=== PATIENT | female | born 1960 | race Two or more races ===

== ENCOUNTER 2019-04-26 21:03 | Emergency (ER) | payer OTHER ==
[~2019-04-26] VITALS: Ht 185.4 cm; Wt 72.6 kg
[2019-04-26 21:45] LABS: BASOPHILS ABSOLUTE AUTO 0.04 K/mm3 (0.00-0.23); BASOPHILS PERCENT AUTO 1 % (0-2); EOSINOPHILS ABSOLUTE AUTO 0.28 K/mm3 (0.00-0.68); EOSINOPHILS PERCENT AUTO 5 % (0-6); Hematocrit 42.6 % (33.0-51.0); Hemoglobin 13.8 g/dL (11.5-16.0); IMMATURE GRAN ABSOLUTE AUTO 0.01 K/mm3 (0.00-0.10); IMMATURE GRAN PERCENT AUTO 0 % (0-1); LYMPHOCYTES ABSOLUTE AUTO 1.72 K/mm3 (0.84-5.20); LYMPHOCYTES PERCENT AUTO 33 % (21-46); MONOCYTES ABSOLUTE AUTO 0.58 K/mm3 (0.16-1.47); MONOCYTES PERCENT AUTO 11 % (4-13); Mean Corpuscular HGB Conc 32.4 g/dL (31.5-36.5); Mean Corpuscular Volume 93 fL (80-100); Mean Platelet Volume 11.4 fL (9.1-12.4); NEUTROPHILS ABSOLUTE AUTO 2.63 K/mm3 (1.96-9.15); NEUTROPHILS PERCENT AUTO 50 % (41-73); Platelet Count 202 K/mm3 (150-400); RDW Coefficient Variation 12.9 % (11.7-14.2); RDW Standard Deviation 43.6 fL (35.1-46.3); White Blood Cell Count 5.26 K/mm3 (4.00-11.30)
[2019-04-26 22:05] LABS: Alanine Aminotransfer (ALT/SGP 27 U/L (12-78); Albumin/Globulin Ratio 1.1 (0.8-1.8); Alk Phos 59 U/L (50-136); Anion Gap 9 mmol/L (6-16); Aspartate Aminotrans (AST/SGOT 20 U/L (12-37); Bilirubin, Total 0.2 mg/dL (0.1-1.0); Blood Urea Nitrogen 20 mg/dL (8-24); Bun/Creatinine Ratio 23.4 (12.0-20.0); CO2, Blood 25 mmol/L (21-32); Chloride, Blood 110 mmol/L (98-108); Creatinine, Blood 0.86 mg/dL (0.40-1.00); Globulin, Blood 3.8 g/dL (2.2-4.0); Glomerular Filtration Rate >60 (60-); Glucose, Blood 99 mg/dL (70-99); Potassium, Blood 4.1 mmol/L (3.5-5.5); Sodium, Blood 144 mmol/L (136-145); Total Protein, Blood 7.8 g/dL (6.4-8.2); Troponin I <0.015 ng/mL (0.000-0.040)
== END 2019-04-26 23:30 | disposition home or self-care (01) ==
LOC: ER 21:03
PROVIDERS: Emergency Medicine
DX: M54.12 Radiculopathy, cervical region (principal)
CPT/HCPCS: 36415; 71046; 80053; 83880; 84484; 85025; 93005; 93010; 96374; 99284-25; A9270; J1885

== ENCOUNTER → 2019-12-11 | Outpatient (CLI) | payer OTHER | END | disposition home or self-care (01) | LOC: PLD 11:01 → LAB SHORT 11:01 | DX: D04.39 Carcinoma in situ of skin of other parts of face (principal) | CPT/HCPCS: 88305 ==

== ENCOUNTER → 2020-02-17 | Outpatient (CLI) | payer OTHER | END | disposition home or self-care (01) | LOC: LAB 12:22 → LAB SHORT 12:22 | PROVIDERS: Hospitalist | DX: Z12.4 Encounter for screening for malignant neoplasm of cervix (principal) | CPT/HCPCS: 84443; G0145 ==

== ENCOUNTER 2020-09-15 10:01 | Day surgery (SDC) | payer OTHER | END 2020-09-15 23:50 | disposition home or self-care (01) | LOC: MOI MAM 10:01 | DX: D05.11 Intraductal carcinoma in situ of right breast (principal) | CPT/HCPCS: 19281; A4648 ==

== ENCOUNTER 2020-09-21 09:10 | Day surgery (SDC) | payer OTHER ==
[~2020-09-21] VITALS: Ht 172.7 cm; Wt 81.7 kg
--- NOTE | 2020-09-21 14:29 | NUR ---
Patient up to Ambulate independently. Gait steady. Discharge instructions reviewed with patient. Patient verbalizes understanding. Copy given to patient to take home. Patient States Post-Procedure ride home has been arranged. Discharged via wheelchair to private car for ride home. breast binder in places. pt belonings returned. Dressing to procedure site clean, dry, intact with no visible drainage, swelling, erythema or bruising noted.
== END 2020-09-22 22:48 | disposition home or self-care (01) ==
LOC: NM 09:10 → ORSCMMR 09:10 → NM 10:00 → ORSCMMR 09-22 22:48
PROVIDERS: Surgery
PROC: 07B50ZX Excision of Right Axillary Lymphatic, Open Approach, Diagnostic (ICD-10-PCS; principal; 2020-09-21 11:00)
PROC: 0HBT0ZZ Excision of Right Breast, Open Approach (ICD-10-PCS; principal; 2020-09-21 11:00)
DX: D05.11 Intraductal carcinoma in situ of right breast (principal); D36.0 Benign neoplasm of lymph nodes
CPT/HCPCS: 38792; 88307; 88342; A9520; J0171; J0690; J1100; J1885; J2250; J2405; J2704; J3010; J7120; Q9968

== ENCOUNTER 2020-09-29 06:01 | Day surgery (SDC) | payer OTHER ==
[~2020-09-29] VITALS: Ht 172.7 cm; Wt 82.1 kg
--- NOTE | 2020-09-29 09:26 | NUR ---
Patient up to Ambulate independently. Gait steady. Discharge instructions reviewed with patient. Patient verbalizes understanding. Copy given to patient to take home. Discharged via wheelchair to private car for ride home WITH SON. DRESSING AND BREAST BINDER REMAIN IN PLACE AND CDI
== END 2020-09-29 09:23 | disposition home or self-care (01) ==
LOC: ORSCMMR 06:01 → ORD 07:30 → ORSCMMR 09:23
PROVIDERS: Surgery
PROC: 0HBT0ZZ Excision of Right Breast, Open Approach (ICD-10-PCS; principal; 2020-09-29 07:30)
DX: D05.11 Intraductal carcinoma in situ of right breast (principal)
CPT/HCPCS: 88305; J0690; J1100; J1885; J2405; J2704; J3010; J7120

== ENCOUNTER → 2021-02-16 | Outpatient (CLI) | payer OTHER | END | disposition home or self-care (01) | LOC: LAB 14:55 → LAB SHORT 14:55 | DX: L57.0 Actinic keratosis (principal) | CPT/HCPCS: 88305 ==

== ENCOUNTER → 2021-08-17 | Outpatient (CLI) | payer OTHER | END | disposition home or self-care (01) | LOC: LAB SHORT 16:30 → LAB 16:30 | PROVIDERS: Hospitalist | DX: Z12.4 Encounter for screening for malignant neoplasm of cervix (principal) | CPT/HCPCS: G0145 ==

== ENCOUNTER → 2021-10-07 | Outpatient (CLI) | payer OTHER | END | disposition home or self-care (01) | LOC: LAB 12:45 → LAB SHORT 12:45 | DX: L08.9 Local infection of the skin and subcutaneous tissue, unspecified (principal) | CPT/HCPCS: 87070; 87205 ==

== ENCOUNTER 2022-01-26 11:46 | Day surgery (SDC) | payer OTHER ==
[~2022-01-26] VITALS: Ht 172.7 cm; Wt 76.0 kg
[2022-01-26] MEDS ORDERED: LETR2.5 (12:07)
[2022-01-26] MEDS ORDERED: OTEZLA1 EAC2 (12:09)
== END 2022-01-26 13:55 | disposition home or self-care (01) ==
LOC: ORSCSDS 11:46
PROVIDERS: Surgery
PROC: 0DBK8ZX Excision of Ascending Colon, Via Natural or Artificial Opening Endoscopic, Diagnostic (ICD-10-PCS; principal; 2022-01-26 13:00)
DX: Z12.11 Encounter for screening for malignant neoplasm of colon (principal); D12.2 Benign neoplasm of ascending colon; K57.30 Diverticulosis of large intestine without perforation or abscess without bleeding; Z79.899 Other long term (current) drug therapy
CPT/HCPCS: 88305; J2405; J2704; J7120

== ENCOUNTER 2022-04-21 11:38 | Observation (INO) | payer OTHER ==
[~2022-04-21] VITALS: Ht 172.7 cm; Wt 74.6 kg
[~2022-04-21 11:38] MED LIST: LETR2.5 PO; OTEZLA30 MG PO
[2022-04-21 14:28] LABS: BASOPHILS ABSOLUTE AUTO 0.03 K/mm3 (0.00-0.23); BASOPHILS PERCENT AUTO 1 % (0-2); EOSINOPHILS ABSOLUTE AUTO 0.15 K/mm3 (0.00-0.68); EOSINOPHILS PERCENT AUTO 4 % (0-6); Hematocrit 42.6 % (33.0-51.0); IMMATURE GRAN PERCENT AUTO 0 % (0-1); LYMPHOCYTES ABSOLUTE AUTO 1.18 K/mm3 (0.84-5.20); LYMPHOCYTES PERCENT AUTO 28 % (21-46); MONOCYTES ABSOLUTE AUTO 0.48 K/mm3 (0.16-1.47); MONOCYTES PERCENT AUTO 11 % (4-13); Mean Corpuscular HGB 29.4 pg (26.0-34.0); Mean Corpuscular HGB Conc 32.9 g/dL (31.5-36.5); Mean Corpuscular Volume 89 fL (80-100); Mean Platelet Volume 10.7 fL (9.1-12.4); NEUTROPHILS PERCENT AUTO 57 % (41-73); Platelet Count 232 K/mm3 (150-400); RDW Coefficient Variation 13.2 % (11.7-14.2); RDW Standard Deviation 43.9 fL (35.1-46.3); Red Blood Cell Count 4.77 M/mm3 (3.80-5.20); White Blood Cell Count 4.24 K/mm3 (4.00-11.30)
[2022-04-21 14:46] LABS: Magnesium, Blood 1.8 mg/dL (1.6-2.4)
[2022-04-21 14:47] LABS: Albumin, Blood 3.9 g/dL (3.4-5.0); Bilirubin, Total 0.6 mg/dL (0.1-1.0); Calcium, Blood 12.7 mg/dL (8.5-10.1); Creatinine, Blood 0.65 mg/dL (0.40-1.00); Globulin, Blood 3.8 g/dL (2.2-4.0); Potassium, Blood 4.1 mmol/L (3.5-5.5); Total Protein, Blood 7.7 g/dL (6.4-8.2)
[2022-04-22 04:45] LABS: BASOPHILS ABSOLUTE AUTO 0.03 K/mm3 (0.00-0.23); BASOPHILS PERCENT AUTO 1 % (0-2); EOSINOPHILS ABSOLUTE AUTO 0.19 K/mm3 (0.00-0.68); EOSINOPHILS PERCENT AUTO 4 % (0-6); Hematocrit 37.2 % (33.0-51.0); Hemoglobin 12.4 g/dL (11.5-16.0); IMMATURE GRAN ABSOLUTE AUTO 0.01 K/mm3 (0.00-0.10); IMMATURE GRAN PERCENT AUTO 0 % (0-1); LYMPHOCYTES ABSOLUTE AUTO 1.42 K/mm3 (0.84-5.20); LYMPHOCYTES PERCENT AUTO 33 % (21-46); MONOCYTES ABSOLUTE AUTO 0.49 K/mm3 (0.16-1.47); MONOCYTES PERCENT AUTO 11 % (4-13); Mean Corpuscular HGB Conc 33.3 g/dL (31.5-36.5); Mean Corpuscular Volume 90 fL (80-100); NEUTROPHILS ABSOLUTE AUTO 2.16 K/mm3 (1.96-9.15); NEUTROPHILS PERCENT AUTO 50 % (41-73); Platelet Count 171 K/mm3 (150-400); RDW Coefficient Variation 13.2 % (11.7-14.2); RDW Standard Deviation 43.8 fL (35.1-46.3); Red Blood Cell Count 4.14 M/mm3 (3.80-5.20)
--- NOTE | 2022-04-22 06:07 | NUR ---
SHIFT SUMMARY NOC PT A/O X4. PT ON TELE RUNNING NSR @ 79 BPM. PT HAS NS @ 100 MLS. PT HAD A BRIEF EPISODE OF BRADYCARDIA IN HIGH 30'S FOR 4 SECONDS THEN RETURNED TO BASELINE RESTING HR OF MID/HIGH 50'S. NO SIGNIFICANT ACUTE CHANGES. PT IS CURRENTLY RESTING WITH BED IN LOWEST POSITION, AND CALL LIGHT WITHIN REACH. TM.
[2022-04-22 06:28] LABS: Albumin, Blood 3.2 g/dL (3.4-5.0); Bilirubin, Total 0.3 mg/dL (0.1-1.0); Bun/Creatinine Ratio 22.6 (12.0-20.0); Calcium, Blood 11.3 mg/dL (8.5-10.1); Creatinine, Blood 0.71 mg/dL (0.40-1.00); Globulin, Blood 3.1 g/dL (2.2-4.0); Magnesium, Blood 1.9 mg/dL (1.6-2.4); Potassium, Blood 4.3 mmol/L (3.5-5.5); Total Protein, Blood 6.3 g/dL (6.4-8.2)
--- NOTE | 2022-04-22 14:05 | NUR ---
Pt given discharge instructions with her . pt axox4. Patient made aware to follow up with on the 26 of April. Pt has all belongings with her.
== END 2022-04-22 14:07 | disposition home or self-care (01) ==
LOC: MEDS 11:38
PROVIDERS: ADMIT Family Medicine
DX: E21.0 Primary hyperparathyroidism (principal); D05.10 Intraductal carcinoma in situ of unspecified breast; Z80.3 Family history of malignant neoplasm of breast
CPT/HCPCS: 36415; 80053; 83735; 85025; 96374; G0378; J3489; J7030

== ENCOUNTER → 2022-11-08 | Outpatient (CLI) | payer OTHER | LOC: PLD 11:59 → LAB SHORT 11:59 → LAB 11:59 | DX: C44.629 Squamous cell carcinoma of skin of left upper limb, including shoulder (principal) | CPT/HCPCS: 88305 ==